=== PATIENT | female | born 1975 | race Caucasian/White ===

== ENCOUNTER → 2018-03-17 | Outpatient (CLI) | payer BC ==
[~2018-03-17] MED LIST: LEVAQUIN750 M1 PO; TAMIFLU 75MG CA75 MG PO
== END | disposition home or self-care (01) ==
DX: N92.0 Excessive and frequent menstruation with regular cycle (principal)

== ENCOUNTER 2018-06-01 18:47 | Emergency (ER) | payer BC ==
[~2018-06-01] VITALS: Ht 165.1 cm; Wt 98.9 kg
[2018-06-01] MEDS ORDERED: TAMIFLU 75MG CA75 MG PO (19:33)
[2018-06-01] MEDS ORDERED: LEVAQUIN750 M1 PO (20:19)
== END 2018-06-01 20:45 | disposition home or self-care (01) ==
LOC: ED 18:47
DX: J10.1 Influenza due to other identified influenza virus with other respiratory manifestations (principal); J18.1 Lobar pneumonia, unspecified organism; G89.29 Other chronic pain; M54.5 Low back pain

== ENCOUNTER → 2023-12-26 | Outpatient (CLI) | payer OTHER | END | disposition home or self-care (01) | LOC: ORTHO 11:59 | PROVIDERS: ATTEND Orthopaedic Surgery | DX: M19.041 Primary osteoarthritis, right hand (principal); M79.645 Pain in left finger(s); M79.644 Pain in right finger(s) ==

== ENCOUNTER → 2024-06-02 | Outpatient (CLI) | payer OTHER | END | disposition home or self-care (01) | LOC: RAD 08:06 | PROVIDERS: ATTEND Orthopaedic Surgery | DX: M25.552 Pain in left hip (principal) ==

== ENCOUNTER → 2024-06-05 | Outpatient (CLI) | payer OTHER | END | disposition home or self-care (01) | LOC: RESCLI 13:21 | PROVIDERS: ATTEND Internal Medicine | DX: J40 Bronchitis, not specified as acute or chronic (principal) ==